=== PATIENT | female | born 1995 | race Hispanic/Latino ===

== ENCOUNTER 2021-02-12 12:00 | Emergency (ER) | payer OTHER, SELFPAY ==
[~2021-02-12] VITALS: Ht 165.1 cm; Wt 95.5 kg
[2021-02-12] MEDS ORDERED: PROC1AER16 PR (14:01)
[2021-02-12] MEDS ORDERED: MIRA3350 PO (14:01)
[2021-02-12 14:15] VITALS: BP 130/74
== END 2021-02-12 14:19 | disposition home or self-care (01) ==
LOC: M ED 12:00
DX: K64.8 Other hemorrhoids (principal); Z88.0 Allergy status to penicillin

== ENCOUNTER 2021-03-03 21:20 | Emergency (ER) | payer OTHER, SELFPAY ==
[~2021-03-03] VITALS: Ht 165.1 cm; Wt 102.3 kg
[~2021-03-03 21:20] MED LIST: MIRA3350 PO; PROC1AER16 PR
[2021-03-03 21:23] VITALS: BP 124/74
== END 2021-03-04 04:13 | disposition home or self-care (01) ==
LOC: M ED 21:20
DX: U07.1 COVID-19 (principal); Z88.0 Allergy status to penicillin

== ENCOUNTER 2021-09-09 12:37 | Inpatient (IN) | payer OTHER ==
[~2021-09-09] VITALS: Ht 162.6 cm; Wt 101.2 kg
[2021-09-09] MEDS ORDERED: KETOROLAC 30 MG/ML 1ML VIAL IM ONE (13:50)
[2021-09-09] MEDS ORDERED: MORPHINE 4 MG/ML 1ML VIAL/SYRINGE IM ONE (14:50)
[2021-09-09] MEDS ORDERED: MORPHINE 4 MG/ML 1ML VIAL/SYRINGE IV ONE (14:50)
[2021-09-09] MEDS ORDERED: ONDANSETRON 4MG 2ML VIAL IV ONE (14:50)
[2021-09-09 15:14] LABS: BASO % 0.5 % (0.0-1.0); EOS # 0.2 10^3/uL (0.0-0.5); EOS % 3.1 % (0.0-3.0); HEMATOCRIT 40.6 % (36.0-47.0); HEMOGLOBIN 12.2 g/dl (12.0-15.5); LYMPH # 2.3 10^3/uL (1.5-5.0); MEAN CORPUSCULAR HEMOGLOBIN 21.5 pg (27.0-33.0); MEAN CORPUSCULAR VOLUME 71.6 fl (80.0-96.0); MONO # 0.4 10^3/uL (0.0-0.8); MONO % 4.8 % (2.0-8.0); NEUTROPHILS # 4.8 10^3/uL (1.5-8.5); NEUTROPHILS % 61.3 % (36.0-66.0); PLATELET COUNT, AUTOMATED 374 10^3/uL (150-450); RED BLOOD COUNT 5.67 10^6/uL (4.00-5.40); WHITE BLOOD COUNT 7.8 10^3/uL (4.0-10.0)
[2021-09-09 15:36] LABS: ERYTHROCYTE SEDIMENTATION RATE 11 mm/hr (0-20)
[2021-09-09 15:45] LABS: ALBUMIN 3.9 GM/DL (3.2-5.2); ALT/SGPT 13 U/L (12-78); BILIRUBIN,DIRECT 0.2 MG/DL (0.0-0.2); BILIRUBIN,TOTAL 0.5 MG/DL (0.2-1.0); BLOOD UREA NITROGEN 8 MG/DL (7-18); CALCIUM LEVEL 8.7 MG/DL (8.5-10.1); CARBON DIOXIDE LEVEL 22 MEQ/L (21-32); CHLORIDE LEVEL 113 MEQ/L (98-107); CREATININE FOR GFR 0.86 MG/DL (0.55-1.30); GLOMERULAR FILTRATION RATE > 60.0 (>60); GLUCOSE, FASTING 108 MG/DL (70-100); LIPASE 71 U/L (73-393); POTASSIUM SERUM 4.6 MEQ/L (3.5-5.1); SODIUM LEVEL 142 MEQ/L (136-145); TOTAL PROTEIN 7.8 GM/DL (6.4-8.2)
[2021-09-09] MEDS ORDERED: ISOVUE-370 76% 100ML VIAL As Ordered ONE (16:01)
[2021-09-09] MEDS ORDERED: NS 1,000 ML IV ONE (16:15)
[2021-09-09] MEDS ORDERED: MORPHINE 2 MG/ML 1ML VIAL IV ONE (16:50)
[2021-09-09] MEDS ORDERED: IBUP-1022 PO (19:12)
[2021-09-09] MEDS ORDERED: HOME MED LIST COMPLETE! XX SCH (19:15)
[2021-09-09] MEDS ORDERED: ONDANSETRON 4MG 2ML VIAL IV PRN (19:20)
[2021-09-09] MEDS ORDERED: oxyCODONE 5MG TAB PO PRN ×2 (19:20)
[2021-09-09] MEDS ORDERED: PROMETHAZINE 25MG/ML 1ML VIAL IV PRN (19:20)
[2021-09-09] MEDS ORDERED: ACETAMINOPHEN 325 MG TAB PO SCH (20:00)
[2021-09-09 22:00] VITALS: BP 136/73
[2021-09-09] MEDS ORDERED: KETOROLAC 30 MG/ML 1ML VIAL IV SCH (22:00)
[2021-09-09] MEDS ORDERED: MORPHINE 4 MG/ML 1ML VIAL/SYRINGE IV PRN (22:35)
[2021-09-09] MEDS ORDERED: LR 1,000 ML IV SCH (22:50)
[2021-09-09] MEDS ORDERED: LIDOCAINE 2% INJ 100 MG/5 ML SYRINGE As Ordered ONE (23:37)
[2021-09-09] MEDS ORDERED: ROCURONIUM BROMIDE 50 MG/5 ML VIAL As Ordered ONE (23:37)
[2021-09-09] MEDS ORDERED: fentaNYL 250 MCG/5 ML INJECTION As Ordered ONE (23:38)
[2021-09-09] MEDS ORDERED: propofoL 200 MG/20 ML VIAL As Ordered ONE (23:38)
[2021-09-09] MEDS ORDERED: MIDAZOLAM INJ 2MG/2ML VIAL (J2250 PER 1MG) As Ordered ONE (23:39)
[2021-09-09] MEDS ORDERED: GENTAMICIN SULF 80MG/2ML VIAL As Ordered ONE (23:51)
[2021-09-09] MEDS ORDERED: CLINDAMYCIN 900MG/50ML PREMIX BAG As Ordered ONE (23:51)
[2021-09-10] VITALS (9 sets, daily range): BP systolic 103–137; BP diastolic 50–75
[2021-09-10] MEDS ORDERED: SUCCINYLCHOLINE 100 MG/5 ML SYRINGE (J0330) As Ordered ONE (01:09)
[2021-09-10] MEDS ORDERED: PHENYLephrine 500MCG 5ML (100MCG/ML) SYRINGE As Ordered ONE (01:09)
[2021-09-10] MEDS ORDERED: DESFLURANE 240 ML INHALANT As Ordered ONE (01:14)
[2021-09-10] MEDS ORDERED: BUPIVACAINE HCL 0.25% 10ML VIAL As Ordered ONE (01:21)
[2021-09-10] MEDS ORDERED: traMADol 50 MG TAB PO PRN ×2 (02:00)
[2021-09-10] MEDS ORDERED: HYDROmorphone HCL 2MG/ML 1ML VIAL As Ordered ONE (02:02)
[2021-09-10] MEDS ORDERED: dexameTHASONE 4 MG/ML 1ML VIAL (J1100 PER 1MG) As Ordered ONE (02:06)
[2021-09-10] MEDS ORDERED: ONDANSETRON 4MG 2ML VIAL As Ordered ONE (02:06)
[2021-09-10] MEDS ORDERED: KETOROLAC 60MG 2ML VIAL As Ordered ONE (02:06)
[2021-09-10] MEDS ORDERED: ACETAMINOPHEN 1000MG 100ML IV BTL (OFIRMEV) (J0131 PER 10MG) As Ordered ONE (02:06)
[2021-09-10] MEDS ORDERED: METOCLOPRAMIDE INJ 10MG/2ML VIAL (J2765 PER 1) As Ordered ONE (02:06)
[2021-09-10] MEDS ORDERED: SUGAMMADEX SODIUM 500 MG/5 ML VIAL (BRIDION) As Ordered ONE (02:45)
[2021-09-10] MEDS ORDERED: ONDANSETRON 4MG 2ML VIAL IV PRN ×2 (03:20→03:25)
[2021-09-10] MEDS ORDERED: oxyCODONE 5MG TAB PO PRN ×2 (03:20→03:25)
[2021-09-10] MEDS ORDERED: PROMETHAZINE 25 MG TAB PO PRN (03:20)
[2021-09-10] MEDS ORDERED: fentaNYL 100 MCG/2 ML INJECTION IV PRN (03:25)
[2021-09-10] MEDS ORDERED: MORPHINE 2 MG/ML 1ML VIAL IV PRN (03:25)
[2021-09-10] MEDS ORDERED: LR 1,000 ML IV SCH (03:25)
[2021-09-10] MEDS: LR 1,000 ML IV SCH ×2 (04:24→11:20)
[2021-09-10 06:49] LABS: HEMATOCRIT 34.4 % (36.0-47.0); HEMOGLOBIN 10.5 g/dl (12.0-15.5); MEAN CORPUSCULAR HEMOGLOBIN 22.1 pg (27.0-33.0); MEAN CORPUSCULAR HGB CONC 30.5 g/dl (32.0-36.5); MEAN CORPUSCULAR VOLUME 72.3 fl (80.0-96.0); PLATELET COUNT, AUTOMATED 323 10^3/uL (150-450); RED BLOOD COUNT 4.76 10^6/uL (4.00-5.40); WHITE BLOOD COUNT 12.2 10^3/uL (4.0-10.0)
[2021-09-10] MEDS: KETOROLAC 30 MG/ML 1ML VIAL IV SCH ×3 (08:57→21:10)
[2021-09-10] MEDS: ACETAMINOPHEN 500 MG TAB PO SCH ×3 (08:58→21:09)
[2021-09-10] MEDS: oxyCODONE 5MG TAB PO PRN (11:21)
[2021-09-10] MEDS: SIMETHICONE 80MG CHEW TAB PO PRN (21:10)
[2021-09-11 02:00] VITALS: BP 120/57
[2021-09-11] MEDS: ACETAMINOPHEN 500 MG TAB PO SCH ×3 (02:27→15:59)
[2021-09-11] MEDS: IBUPROFEN 800 MG TAB PO SCH ×2 (05:12→13:43)
[2021-09-11 06:00] VITALS: BP 116/56
[2021-09-11] MEDS: SIMETHICONE 80MG CHEW TAB PO PRN (07:47)
[2021-09-11 10:00] VITALS: BP 117/57
[2021-09-11] MEDS: oxyCODONE 5MG TAB PO PRN (10:23)
[2021-09-11] MEDS ORDERED: OXYC-517 PO (12:18)
[2021-09-11] MEDS ORDERED: IBUP80TA PO (12:18)
[2021-09-11] MEDS ORDERED: ACET-683 PO (12:18)
[2021-09-11 14:00] VITALS: BP 117/58
== END 2021-09-11 16:20 | disposition home or self-care (01) | DRG 742 ==
LOC: M ED 12:37 → M ED INP 19:18 → M OBS 21:10
PROVIDERS: ADMIT Obstetrics & Gynecology; ATTEND Obstetrics & Gynecology
PROC: 0UT50ZZ Resection of Right Fallopian Tube, Open Approach (ICD-10-PCS; 2021-09-10)
PROC: 0UT00ZZ Resection of Right Ovary, Open Approach (ICD-10-PCS; principal; 2021-09-10 00:30)
DX: D27.1 Benign neoplasm of left ovary (principal); N83.511 Torsion of right ovary and ovarian pedicle; Z88.0 Allergy status to penicillin

== ENCOUNTER 2022-03-04 13:12 | Emergency (ER) | payer OTHER ==
[~2022-03-04] VITALS: Ht 165.1 cm; Wt 94.3 kg
[~2022-03-04 13:12] MED LIST changes: +ACET-683 PO; +IBUP-1022 PO; +IBUP80TA PO; +OXYC-517 PO
[2022-03-04 13:14] VITALS: BP 128/67
[2022-03-04] MEDS ORDERED: MULTTAB20 PO (13:36)
== END 2022-03-04 17:30 | disposition home or self-care (01) ==
LOC: M ED 13:12
DX: O99.511 Diseases of the respiratory system complicating pregnancy, first trimester (principal); Z88.0 Allergy status to penicillin

== ENCOUNTER 2022-09-18 07:41 | Inpatient (IN) | payer OTHER ==
[~2022-09-18] VITALS: Ht 167.6 cm; Wt 110.0 kg
[2022-09-18] VITALS (7 sets, daily range): BP systolic 107–123; BP diastolic 56–73; TEMP 97.2; O2SAT 98–100
[~2022-09-18 07:41] MED LIST changes: +B-650TAB2 PO; +IRON65TA2 PO; +MULTTAB20 PO
[2022-09-18] MEDS ORDERED: ACET-897 PO (08:01)
[2022-09-18] MEDS ORDERED: HOME MED LIST COMPLETE! XX SCH (08:05)
[2022-09-18] MEDS ORDERED: LACTATED RINGER'S 1000 ML IV STA (08:51)
[2022-09-18 08:55] LABS: HEMATOCRIT 37.3 % (36.0-47.0); HEMOGLOBIN 10.8 g/dl (12.0-15.5); MEAN CORPUSCULAR HEMOGLOBIN 21.9 pg (27.0-33.0); MEAN CORPUSCULAR VOLUME 75.7 fl (80.0-96.0); PLATELET COUNT, AUTOMATED 224 10^3/uL (150-450); RED BLOOD COUNT 4.93 10^6/uL (4.00-5.40); WHITE BLOOD COUNT 7.6 10^3/uL (4.0-10.0)
[2022-09-18] MEDS ORDERED: OXYTOCIN DRIP 30 UNITS in IV 1 EA IV PRN (08:55)
[2022-09-18] MEDS ORDERED: TRANEXAMIC ACID INJection 1,000 MG in NS 100 ML IV PRN (08:55)
[2022-09-18] MEDS ORDERED: METHYLERGONOVINE MALEATE 0.2MG/ML 1ML VIAL IM PRN ×2 (08:55→12:50)
[2022-09-18] MEDS ORDERED: BICITRA 30ML SOLN UDC PO ONE (08:55)
[2022-09-18] MEDS ORDERED: OXYTOCIN INJ 10UNITS/ML 1ML VIAL As Ordered ONE (08:58)
[2022-09-18] MEDS ORDERED: KETOROLAC 60MG 2ML VIAL As Ordered ONE (08:58)
[2022-09-18] MEDS ORDERED: GLYCOPYRROLATE INJ 0.2 MG/ML 2 ML VIAL As Ordered ONE (08:58)
[2022-09-18] MEDS ORDERED: MORPHINE PRES-FREE INJ 10 MG/10 ML VIAL As Ordered ONE (09:05)
[2022-09-18] MEDS ORDERED: CLINDAMYCIN 900 MG in IV 1 EA IV ONE (09:15)
[2022-09-18] MEDS: LR 1,000 ML IV SCH ×2 (09:27→16:55)
[2022-09-18] MEDS ORDERED: GENTAMICIN 400 MG in D5W 100 ML IV ONE (10:00)
[2022-09-18] MEDS ORDERED: PHENYLEPHRINE 10MG/ML 1ML VIAL As Ordered ONE (11:02)
[2022-09-18] MEDS ORDERED: MIDAZOLAM INJ 2MG/2ML VIAL As Ordered ONE (11:22)
[2022-09-18] MEDS ORDERED: ACETAMINOPHEN 1000MG 100ML IV BAG As Ordered ONE (11:23)
[2022-09-18 11:45] LABS: CORD GAS ABE A -2.8; CORD GAS O2 SAT A 31.8 %; CORD GAS PCO2 A 63.1 mmHg; CORD GAS PH A 7.232 UNITS; CORD GAS PO2 A 16.9 mmHg; CORD GAS SBC A 20.7 MMOL/L; CORD GAS TCO2 A 27.9 MMOL/L
[2022-09-18 11:48] LABS: CORD GAS ABE V -5.1; CORD GAS HCO3 V 21.5 MMOL/L; CORD GAS PCO2 V 45.9 mmHg; CORD GAS PH V 7.289 UNITS; CORD GAS PO2 V 47.2 mmHg; CORD GAS SBC V 20.1 MMOL/L; CORD GAS TCO2 V 22.9 MMOL/L
[2022-09-18] MEDS ORDERED: METOCLOPRAMIDE INJ 10MG/2ML VIAL As Ordered ONE (11:54)
[2022-09-18] MEDS ORDERED: PHENYLephrine 500MCG 5ML (100MCG/ML) SYRINGE As Ordered ONE (12:03)
[2022-09-18] MEDS ORDERED: ePHEDrine SULFATE 25 MG/5 ML(5MG/ML) SYRINGE As Ordered ONE (12:03)
[2022-09-18] MEDS ORDERED: TRANEXAMIC ACID 100 MG/ML 10ML VIAL As Ordered ONE (12:06)
[2022-09-18] MEDS ORDERED: OXYTOCIN 30UNITS IN 0.9% NaCl 500ML IV BAG As Ordered ONE (12:46)
[2022-09-18] MEDS ORDERED: METOCLOPRAMIDE INJ 10MG/2ML VIAL IV PRN ×2 (12:50→13:35)
[2022-09-18] MEDS ORDERED: LR 1,000 ML IV SCH ×2 (12:50→13:35)
[2022-09-18] MEDS ORDERED: RHOGAM 300MCG (1500IU) INJ IM SCH (12:50)
[2022-09-18] MEDS ORDERED: ONDANSETRON 4MG 2ML VIAL IV PRN ×2 (12:50→13:35)
[2022-09-18] MEDS ORDERED: oxyCODONE 5MG TAB PO PRN ×3 (12:50→13:35)
[2022-09-18] MEDS ORDERED: SIMETHICONE 80MG CHEW TAB PO PRN (12:50)
[2022-09-18] MEDS ORDERED: NALOXONE INJ 0.4MG/1ML VIAL IV PRN ×2 (13:35)
[2022-09-18] MEDS ORDERED: diphenhydrAMINE 50MG/ML VIAL IV PRN (13:35)
[2022-09-18] MEDS ORDERED: fentaNYL 100 MCG/2 ML INJECTION IV PRN (13:35)
[2022-09-18] MEDS ORDERED: **NOTE PATIENT COMMENT** MISC XX SCH (13:35)
[2022-09-18] MEDS ORDERED: ONDANSETRON 4MG 2ML VIAL As Ordered ONE (14:15)
[2022-09-18] MEDS: SLF 3 ML SYR IV SCH (14:45)
[2022-09-18] MEDS: PRENATAL VITAMINS CHEWABLE TABLET PO SCH (15:00)
[2022-09-18] MEDS: KETOROLAC 30 MG/ML 1ML VIAL IV SCH (18:11)
[2022-09-18] MEDS: DOCUSATE SODIUM 100MG CAPSULE PO SCH (20:29)
[2022-09-18] MEDS: ACETAMINOPHEN 500 MG TAB PO SCH (20:29)
[2022-09-19] MEDS: KETOROLAC 30 MG/ML 1ML VIAL IV SCH ×2 (00:20→05:47)
[2022-09-19] MEDS: SLF 3 ML SYR IV SCH ×2 (00:20→05:47)
[2022-09-19] MEDS: LR 1,000 ML IV SCH (00:21)
[2022-09-19 02:00] VITALS: BP 108/62; O2SAT 97
[2022-09-19] MEDS: ACETAMINOPHEN 500 MG TAB PO SCH ×4 (02:00→20:26)
[2022-09-19 06:00] VITALS: BP 108/66; O2SAT 99
[2022-09-19 07:51] LABS: HEMATOCRIT 25.6 % (36.0-47.0); MEAN CORPUSCULAR HEMOGLOBIN 22.5 pg (27.0-33.0); MEAN CORPUSCULAR HGB CONC 31.6 g/dl (32.0-36.5); MEAN CORPUSCULAR VOLUME 71.1 fl (80.0-96.0); PLATELET COUNT, AUTOMATED 207 10^3/uL (150-450); WHITE BLOOD COUNT 12.1 10^3/uL (4.0-10.0)
[2022-09-19 07:52] LABS: HEMOGLOBIN 8.1 g/dl (12.0-15.5)
[2022-09-19] MEDS: PRENATAL VITAMINS CHEWABLE TABLET PO SCH (08:54)
[2022-09-19] MEDS: DOCUSATE SODIUM 100MG CAPSULE PO SCH ×2 (08:54→20:25)
[2022-09-19 09:29] VITALS: BP 124/56; O2SAT 98
[2022-09-19] MEDS: IBUPROFEN 800 MG TAB PO SCH ×2 (14:01→22:16)
[2022-09-19 14:08] VITALS: BP 126/63; O2SAT 100
[2022-09-19 17:38] VITALS: BP 129/64
[2022-09-19 22:00] VITALS: BP 122/67; O2SAT 98
[2022-09-20 02:00] VITALS: BP 127/60; O2SAT 98
[2022-09-20] MEDS: ACETAMINOPHEN 500 MG TAB PO SCH ×3 (02:34→14:59)
[2022-09-20] MEDS: IBUPROFEN 800 MG TAB PO SCH ×2 (05:44→14:58)
[2022-09-20 06:00] VITALS: BP 124/66; O2SAT 99
[2022-09-20] MEDS: DOCUSATE SODIUM 100MG CAPSULE PO SCH (08:53)
[2022-09-20] MEDS ORDERED: OXYC-517 PO (08:54)
[2022-09-20] MEDS ORDERED: ACET1TAB55 PO (08:54)
[2022-09-20] MEDS: PRENATAL VITAMINS CHEWABLE TABLET PO SCH (08:54)
[2022-09-20] MEDS ORDERED: IBUP80TA PO (08:54)
[2022-09-20] MEDS ORDERED: MEASLES,MUMPS,RUBELLA VACCINE INJ (MMR-II) SC.IMMUN ONE (09:00)
[2022-09-20 10:00] VITALS: BP 127/60; O2SAT 99
== END 2022-09-20 17:00 | disposition home or self-care (01) | DRG 785 ==
LOC: M LDI 07:41 → M OBS 14:50
PROVIDERS: ADMIT Obstetrics & Gynecology; ATTEND Obstetrics & Gynecology
PROC: 0UT60ZZ Resection of Left Fallopian Tube, Open Approach (ICD-10-PCS; 2022-09-18)
PROC: 10D00Z1 Extraction of Products of Conception, Low, Open Approach (ICD-10-PCS; principal; 2022-09-18 09:30)
DX: O34.211 Maternal care for low transverse scar from previous cesarean delivery (principal); Z37.0 Single live birth; Z3A.39 39 weeks gestation of pregnancy; Z30.2 Encounter for sterilization

== ENCOUNTER 2022-10-30 18:45 | Emergency (ER) | payer OTHER ==
[~2022-10-30] VITALS: Ht 165.1 cm; Wt 96.3 kg
[~2022-10-30 18:45] MED LIST changes: +ACET-897 PO; +ACET1TAB55 PO
[2022-10-30 20:13] LABS: BASO % 0.6 % (0.0-1.0); EOS # 0.2 10^3/uL (0.0-0.5); EOS % 3.7 % (0.0-3.0); HEMATOCRIT 36.5 % (36.0-47.0); HEMOGLOBIN 10.8 g/dl (12.0-15.5); LYMPH # 2.8 10^3/uL (1.5-5.0); LYMPH % 44.6 % (24.0-44.0); MEAN CORPUSCULAR HEMOGLOBIN 21.2 pg (27.0-33.0); MEAN CORPUSCULAR HGB CONC 29.6 g/dl (32.0-36.5); MEAN CORPUSCULAR VOLUME 71.6 fl (80.0-96.0); MONO # 0.4 10^3/uL (0.0-0.8); MONO % 7.1 % (2.0-8.0); NEUTROPHILS # 2.7 10^3/uL (1.5-8.5); NEUTROPHILS % 43.7 % (36.0-66.0); PLATELET COUNT, AUTOMATED 336 10^3/uL (150-450); WHITE BLOOD COUNT 6.2 10^3/uL (4.0-10.0)
[2022-10-30 20:36] LABS: HCG, SERUM QUANTITATIVE < 2.6 MIU/ML (<4.2)
[2022-10-30 20:38] LABS: BLOOD UREA NITROGEN 8 MG/DL (9-23); CALCIUM LEVEL 9.3 MG/DL (8.5-10.1); CARBON DIOXIDE LEVEL 26 MMOL/L (20-31); CHLORIDE LEVEL 107 MMOL/L (98-107); CREATININE FOR GFR 0.93 MG/DL (0.55-1.30); GLOMERULAR FILTRATION RATE > 60.0 (>60); GLUCOSE, FASTING 97 MG/DL (60-100); POTASSIUM SERUM 4.5 MMOL/L (3.5-5.1); SODIUM LEVEL 140 MMOL/L (136-145)
[2022-10-31 00:08] LABS: BASO % 0.7 % (0.0-1.0); EOS # 0.2 10^3/uL (0.0-0.5); EOS % 3.6 % (0.0-3.0); HEMATOCRIT 34.5 % (36.0-47.0); HEMOGLOBIN 10.2 g/dl (12.0-15.5); LYMPH # 2.9 10^3/uL (1.5-5.0); LYMPH % 47.8 % (24.0-44.0); MEAN CORPUSCULAR HEMOGLOBIN 21.1 pg (27.0-33.0); MEAN CORPUSCULAR HGB CONC 29.6 g/dl (32.0-36.5); MEAN CORPUSCULAR VOLUME 71.4 fl (80.0-96.0); MONO # 0.3 10^3/uL (0.0-0.8); MONO % 5.4 % (2.0-8.0); NEUTROPHILS # 2.6 10^3/uL (1.5-8.5); NEUTROPHILS % 42.2 % (36.0-66.0); PLATELET COUNT, AUTOMATED 291 10^3/uL (150-450); RED BLOOD COUNT 4.83 10^6/uL (4.00-5.40); WHITE BLOOD COUNT 6.1 10^3/uL (4.0-10.0)
[2022-10-31 01:08] VITALS: BP 115/68; TEMP 98.4; O2SAT 99
== END 2022-10-31 01:09 | disposition home or self-care (01) ==
LOC: M ED 18:45
DX: O72.1 Other immediate postpartum hemorrhage (principal); Z88.0 Allergy status to penicillin